=== PATIENT | male | born 1965 | race Caucasian/White ===

== ENCOUNTER 2021-01-23 12:15 | Emergency (ER) | payer OTHER, SELFPAY ==
[2021-01-23] VITALS (34 sets, daily range): BP systolic 166–217; BP diastolic 83–115; PULSE 56–90; RESP 10–22; TEMP 36.7; O2SAT 96–100; BMI 28.7
--- NOTE | 2021-01-23 12:29 | DI.RAD.S_ITS ---
PROCEDURE: XR CHEST 1V INDICATIONS: chest pain. TECHNIQUE: One view of the chest was acquired. COMPARISON: None. FINDINGS: Surgical changes and devices: None. Lungs and pleura: Lungs are clear. No pleural effusions or pneumothorax. Mediastinum: Mediastinal contours appear normal. Heart size is normal. Bones and chest wall: No suspicious bony lesions. Overlying soft tissues appear unremarkable. IMPRESSION: No acute disease. Dictated by: Darren Kaye M.D. on 01/23/2021 at 13:13 Approved by: Darren Kaye M.D. on 01/23/2021 at 13:31
[2021-01-23 12:40] LABS: Add Manual Diff / Slide Review NO; Basophils Absolute Auto 100 /uL (0-100); Basophils Percent Auto 0.8 % (0-2); Eosinophils Absolute Auto 200 /uL (0-450); Eosinophils Percent Auto 2.2 % (2-4); Hematocrit 43.1 % (41-53); Hemoglobin 14.6 g/dL (13.5-17.5); Lymphocytes Absolute Auto 2000 /uL (1100-4500); Lymphocytes Percent Auto 24.6 % (25-40); Mean Corpuscular Hemoglobin 30.6 PG (26-34); Mean Corpuscular Volume 89.9 fL (80-100); Monocytes Absolute Auto 700 /uL (0-900); Monocytes Percent Auto 8.4 % (3-14); Neutrophils Absolute Auto 5100 /uL (1500-7000); Platelet Count 239 X10^3/uL (150-400); Red Blood Cell Count 4.79 X10^6/uL (4.5-5.9); Red Cell Distribution Width 13.1 % (11.6-14.8); White Blood Cell Count 7.9 X10^3/uL (4.5-11.0)
[2021-01-23 12:49] LABS: Prothrombin Time 11.6 SECONDS (10.1-12.7)
[2021-01-23 12:51] LABS: PTT Partial Thromboplastin Tim 34 SECONDS (26.4-36.2)
[2021-01-23 12:55] LABS: Alanine Aminotransferase 39 IU/L (<50); Albumin 4.4 g/dL (3.5-5.0); Albumin Globulin Ratio 1.3 (1.0-2.8); Alkaline Phosphatase 67 U/L (38-126); Aspartate Aminotransferase 31 IU/L (17-59); BUN Creatinine Ratio 18.5 (6-22); Bilirubin Total 0.7 mg/dL (0.2-1.3); Blood Urea Nitrogen 17 mg/dL (9-20); Calcium 9.2 mg/dL (8.4-10.2); Carbon Dioxide 29 mmol/L (22-32); Chloride 103 mmol/L (98-107); Creatine Kinase 73 U/L (55-170); Estimated Glomerular Filt Rate > 60.0 mL/min (>60); Globulin 3.4 g/dL (1.7-4.1); Glucose 109 mg/dL (70-100); HEMOLYSIS < 15 (0-50); Lipase 172 U/L (23-300); Potassium 4.1 mmol/L (3.4-5.1); Sodium 140 mmol/L (137-145); Total Protein 7.8 g/dL (6.3-8.2)
[2021-01-23 13:06] LABS: Troponin I < 0.012 ng/mL (0.01-0.034)
--- NOTE | 2021-01-23 13:17 | ED_ITS ---
HPI - Chest Pain General Chief Complaint: Chest Pain Stated Complaint: chest discomfort, unusual feeling x3 days Time Seen by Provider: 01/23/21 13:10 Source: patient Mode of arrival: Ambulatory Limitations: no limitations History of Present Illness HPI narrative: Patient is a 55-year-old male who states he has no medical problems although this is because he does not see a primary doctor who is here for evaluation who was initially described as left-sided chest discomfort. Upon further evaluation it is more left upper quadrant/left lower chest. He states that it is a sharp pain. Not worse with palpation or movement or eating. It is somewhat better with drinking cold water. He does state that he has had some stomach discomfort with some dark colored stools recently. He does admit the occasionally drinks alcohol. Has never had a colonoscopy. Has not tried anything for symptoms prior to arrival. He states that he has had some form the symptoms consistently while awake for the past 3 days however there have been times when it was worse than others. Related Data Allergies Allergy/AdvReac Type Severity Reaction Status Date / Time No Known Drug Allergies Allergy Verified 01/23/21 12:33 Review of Systems Constitutional Constitutional: Denies fever(s) Cardiovascular Cardiovascular: Reports chest pain and Denies dyspnea Respiratory Respiratory: Denies cough and Denies dyspnea Gastrointestinal Gastrointestinal: Reports abdominal pain, Denies nausea and Denies vomiting Comments: The stools Musculoskeletal Musculoskeletal: Denies arthralgias and Denies myalgias Integumentary/Breasts Skin/Breast: Denies rash Neurologic Neurologic: Denies behavioral changes Psychiatric Psychiatric: Denies behavioral changes Hematologic/Lymphatic On Anticoagulants: No Allergic/Immunologic Allergic/Immunologic: Denies urticaria Patient History Medical History Patient denies medical problems Social History Smoking Status: Unknown if ever smoked Smoking Status: Unknown if ever smoked alcohol intake frequency: 3 or more drinks per day Substance Use Type: does not use Exam Initial Vital Signs Initial Vital Signs: Vital Signs Temperature 98.0 F 01/23/21 12:17 Pulse Rate 90 01/23/21 12:17 Respiratory Rate 15 01/23/21 12:17 Blood Pressure 217/115 H 01/23/21 12:17 Pulse Oximetry 99 01/23/21 12:17 Const General: cooperative and comfortable Limitations: mental status not altered HENMT Head: normal to inspection and normocephalic Chest Chest: No crepitus and No tenderness Resp Effort & Inspection: normal respiratory effort Auscultation: clear to auscultation bilaterally Cardio Rate: regular rate Rhythm: regular rhythm GI Inspection: non-distended Palpation: soft and tender (Left upper quadrant and left flank) Back/Spine/Pelvis Back: No CVA tenderness Skin Lesions: no lesions Rashes: no rashes Neuro General: patient alert, patient awake and patient oriented x3 Cognition: normal cognition Speech: speech normal Extrem General: normal to inspection and capillary refill normal Psych Appearance: grossly normal and well kempt Scores HEART Score Heart Score history: Slightly Suspicious Heart Score EKG: Normal Heart Score Age: 45-64 years old Heart Score risk factors: No known risk factors Heart Score troponin: < or = to normal limit Heart Score Total: 1 Course Orders Ordered: ED Orders 01/23/21 12:25 Complete Blood Count AUTO DIFF Stat Comprehensive Metabolic Panel Stat Lipase Stat Partial Thromboplastin Time Stat Prothrombin Time INR Stat Troponin & CK Cardiac Panel Stat 01/23/21 12:29 XR chest 1V Stat EKG-12 Lead Stat 01/23/21 13:18 CT abdomen pelvis w con Stat Discontinued Medications Sodium Chloride (Normal Saline 0.9%) 1,000 mls @ 1,000 mls/hr IV BOLUS ONE Stop: 01/23/21 14:16 Last Infusion: 01/23/21 15:23 Dose: 0 mls/hr Documented by: Admin: 01/23/21 13:42 Dose: 1,000 mls/hr Documented by: SUSANA Vital Signs Vital signs: Vital Signs - 8 hr 01/23/21 12:17 01/23/21 12:26 01/23/21 12:27 Temperature 98.0 F Pulse Rate 90 66 67 Respiratory Rate 15 14 13 Blood Pressure 217/115 H 174/95 H Pulse Oximetry 99 99 99 01/23/21 12:30 01/23/21 12:31 01/23/21 12:55 Temperature Pulse Rate 71 72 63 Respiratory Rate 16 17 13 Blood Pressure 196/83 H 194/103 H Pulse Oximetry 99 99 97 01/23/21 13:00 01/23/21 13:05 01/23/21 13:10 Temperature Pulse Rate 63 63 62 Respiratory Rate 13 16 11 L Blood Pressure 182/91 H 170/95 H 170/95 H Pulse Oximetry 96 97 97 01/23/21 13:16 01/23/21 13:21 01/23/21 13:33 Temperature Pulse Rate 70 60 61 Respiratory Rate 22 13 16 Blood Pressure 209/100 H 171/92 H Pulse Oximetry 96 97 99 01/23/21 13:34 01/23/21 13:35 01/23/21 13:40 Temperature Pulse Rate 62 62 60 Respiratory Rate 13 12 11 L Blood Pressure 208/92 H 193/98 H 181/95 H Pulse Oximetry 97 98 97 01/23/21 13:46 01/23/21 13:50 01/23/21 13:55 Temperature Pulse Rate 60 68 57 L Respiratory Rate 20 16 12 Blood Pressure 212/98 H 198/97 H 184/89 H Pulse Oximetry 97 98 98 01/23/21 14:00 01/23/21 14:06 01/23/21 14:10 Temperature Pulse Rate 57 L 57 L 60 Respiratory Rate 10 L 14 11 L Blood Pressure 168/88 H 186/96 H 171/104 H Pulse Oximetry 98 97 98 01/23/21 14:15 01/23/21 14:20 01/23/21 14:25 Temperature Pulse Rate 59 L 56 L 63 Respiratory Rate 15 13 16 Blood Pressure 166/90 H 171/94 H 180/94 H Pulse Oximetry 98 99 99 01/23/21 14:30 01/23/21 14:41 01/23/21 14:45 Temperature Pulse Rate 64 62 59 L Respiratory Rate 15 21 15 Blood Pressure 177/96 H 179/93 H Pulse Oximetry 98 100 99 01/23/21 14:50 01/23/21 14:55 01/23/21 15:00 Temperature Pulse Rate 58 L 62 62 Respiratory Rate 14 13 15 Blood Pressure 183/96 H 179/96 H 176/99 H Pulse Oximetry 100 100 99 01/23/21 15:05 01/23/21 15:10 01/23/21 15:15 Temperature Pulse Rate 61 67 60 Respiratory Rate 14 16 18 Blood Pressure 172/98 H 176/85 H 180/88 H Pulse Oximetry 100 99 99 01/23/21 15:20 Temperature Pulse Rate 60 Respiratory Rate 13 Blood Pressure 186/97 H Pulse Oximetry 99 MDM - Chest Pain Lab Data Attestation: I reviewed the patient's lab results. Result diagrams: 01/23/21 12:25 01/23/21 12:25 Labs: Lab Results 01/23/21 01/23/21 01/23/21 Range/Units 12:25 12:25 12:25 WBC 7.9 (4.5-11.0) X10^3/uL RBC 4.79 (4.5-5.9) X10^6/uL Hgb 14.6 (13.5-17.5) g/dL Hct 43.1 (41-53) % MCV 89.9 (80-100) fL MCH 30.6 (26-34) PG MCHC 34.0 (30-36) % RDW 13.1 (11.6-14.8) % Plt Count 239 (150-400) X10^3/uL Neut % (Auto) 64.0 (50-75) % Lymph % (Auto) 24.6 L (25-40) % [place] % (Auto) 8.4 (3-14) % Eos % (Auto) 2.2 (2-4) % Baso % (Auto) 0.8 (0-2) % Neut # (Auto) 5100 (8562-0026) /uL Lymph # (Auto) 2000 (8805-0249) /uL [place] # (Auto) 700 (0-900) /uL Eos # (Auto) 200 (0-450) /uL Baso # (Auto) 100 (0-100) /uL PT 11.6 (10.1-12.7) SECONDS INR 1.0 (0.9-1.3) APTT 34 (26.4-36.2) SECONDS Sodium 140 (137-145) mmol/L Potassium 4.1 (3.4-5.1) mmol/L Chloride 103 (98-107) mmol/L Carbon Dioxide 29 (22-32) mmol/L BUN 17 (9-20) mg/dL Creatinine 0.92 (0.66-1.25) mg/dL Estimated GFR > 60.0 (>60) mL/min BUN/Creatinine Ratio 18.5 (6-22) Glucose 109 H (70-100) mg/dL Calcium 9.2 (8.4-10.2) mg/dL Total Bilirubin 0.7 (0.2-1.3) mg/dL AST 31 (17-59) IU/L ALT 39 (<50) IU/L Alkaline Phosphatase 67 (38-126) U/L Total Creatine Kinase 73 (55-170) U/L CK-MB (CK-2) TNP CK-MB (CK-2) Rel Index TNP Troponin I < 0.012 (0.01-0.034) ng/mL Total Protein 7.8 (6.3-8.2) g/dL Albumin 4.4 (3.5-5.0) g/dL Globulin 3.4 (1.7-4.1) g/dL Albumin/Globulin Ratio 1.3 (1.0-2.8) Lipase 172 (23-300) U/L Imaging Data Chest x-ray: Radiologist's Impression: [address] [id number] ReportSigned Patient: Arabella Lewis#: [id number]: 1965Acct:[id number]/Sex: 55 / MDate of Service: 01/23/21Loc: EDAccession Number: [id number] Procedure: XR chest 1V Ordering Provider: Dago Bell D.O. PROCEDURE: XR CHEST 1V INDICATIONS: chest pain. TECHNIQUE: One view of the chest was acquired. COMPARISON: None. FINDINGS: Surgical changes and devices: None. Lungs and pleura: Lungs are clear. No pleural effusions or pneumothorax. Mediastinum: Mediastinal contours appear normal. Heart size is normal. Bones and chest wall: No suspicious bony lesions. Overlying soft tissues appear unremarkable. IMPRESSION: No acute disease. Dictated by: Darren Kaye M.D. on 01/23/2021 at 13:13 Approved by: Darren Kaye M.D. on 01/23/2021 at 13:31 CT scan - abdomen/pelvis: Radiologist's Impression: [address] [id number] Scan ReportSigned Patient: Arabella Lewis#: [id number]: 1965Acct:[id number]/Sex: 55 / MDate of Service: 01/23/21Loc: EDAccession Number: [id number] Procedure: CT abdomen pelvis w con Ordering Provider: Dago Bell D.O. PROCEDURE: CT ABDOMEN PELVIS W CON INDICATIONS: Left-sided abdominal pain TECHNIQUE: After the administration of intravenous contrast, 5 mm thick sections acquired from the diaphragm to the symphysis. 5 mm coronal and sagittal reformats were acquired. For radiation dose reduction, the following was used: automated exposure control, adjustment of mA and/or kV according to patient size. COMPARISON: None. FINDINGS: ABDOMEN: Lung bases: Normal Liver: Normal The gallbladder is grossly unremarkable. Bile ducts: Normal Pancreas: Normal Spleen: Normal Adrenal glands: Normal Incidentally noted left parapelvic cysts are present. No hydronephrosis. Right renal cortical scarring. Stomach: Normal Bowel: Normal No free fluid or air. Colonic diverticulosis is seen without evidence of acute complication. Normal appendix. Abdominal nodes: Normal Aorta and IVC: Normal. Ventral wall: Normal. In the left flank subcutaneous soft tissues, no discrete focal inflammation or abscess is seen. PELVIS: Bladder: Normal. There are left-sided pelvic phleboliths seen in the region of the distal ureter. Bilateral small fat containing inguinal hernias. Pelvic nodes: Normal No suspicious bony lesions. No vertebral body compression fractures. IMPRESSION: Overall, no acute abnormality. No visualized etiology for left abdominal pain. Additional chronic and incidental findings as above. Dictated by: Darren Kaye M.D. on 01/23/2021 at 13:34 Approved by: Darren Kaye M.D. on 01/23/2021 at 13:43 ECG Data Attestation: I personally reviewed and interpreted this ECG as follows: Prior ECG tracings: not available for review Interpretation: Sinus rhythm Ventricular rate of 68 Incomplete right bundle-branch block Normal axis No ST T wave changes MDM Narrative Medical decision making narrative: On my evaluation the patient was describing more of left upper quadrant discomfort and left sided abdominal discomfort rather than left-sided chest discomfort. Low suspicion for gallbladder pathology given his presentation today. His lipase is unremarkable. CT scan his abdomen she does not show any signs of diverticulitis. Low suspicion for kidney stone. He has had consistent left-sided discomfort while awake for the past 3 days. Has a low risk heart score. Troponin is negative after 3 days of constant symptoms. This could very well be stomach ulcer/reflux disease I did discuss this with him and medications that he can take to see if it will help. Patient was also hypertensive. He does not have a diagnosis of hypertension with this is most likely because he does not see a doctor. We did discuss taking his blood pressure at home. He was given information to establish a primary doctor in the area. He was given return precautions and follow-up instructions. He expressed understanding and agreement. Discharge Plan Departure Patient Disposition: Home Clinical Impression: Atypical chest pain, Abdominal pain Instructions: DI for Abdominal Pain-Adult, DI for Atypical Chest Pain Activity Restrictions/Additional Instructions: I do recommend that he start on a medicine called famotidine/Pepcid. You can purchase this [id number]. Please take it as directed. I also recommend you contact the health human resources generalist here at the hospital at [phone]. This individual can help you establish a primary doctor. Return to the emergency department for any new or worsening symptoms Referrals: Jason Rollins MD [Primary Care Provider] -
[2021-01-23] MEDS: SODIUM CHLORIDE 0.9% 1,000 ML 1000 ML IV (13:42)
== END 2021-01-23 15:27 | disposition home or self-care (01) ==
PROVIDERS: Emergency Provider Emergency Medicine; PCP Family Medicine
DX: R07.89 Other chest pain (principal); R10.9 Unspecified abdominal pain
CPT/HCPCS: 36415; 71045; 74177; 80053; 82550; 83690; 84484; 85025; 85610; 85730; 93005; 96360; 96361; 99284